=== PATIENT | male | born 1965 | race Caucasian/White ===

== ENCOUNTER → 2021-01-02 | Outpatient (CLI) | payer MEDICARE ==
[~2021-01-02] MED LIST: CIPRO500 MG PO; CYCLOBENZAPRINE10 MG PO; FLAGYL500 MG PO; NAPROSYN500 MG PO; NORCO 7.5-3251 EACH PO; ONDANSETRON ODT4 MG PO; PANTOPRAZOLE SO40 MG PO
== END ==
LOC: HEART 5 10:25
DX: I48.91 Unspecified atrial fibrillation (principal)

== ENCOUNTER → 2021-01-28 | Outpatient (CLI) | payer MEDICARE | LOC: HEART 5 07:40 | DX: I10 Essential (primary) hypertension (principal); I48.91 Unspecified atrial fibrillation; R07.89 Other chest pain | CPT/HCPCS: 78452; 93306; A9502 ==

== ENCOUNTER → 2021-03-07 | Outpatient (CLI) | payer MEDICARE ==
[~2021-03-07] MED LIST changes: +HYDROCHLOROTH12.5 MG PO; +LIPITOR40 MG PO; +METOPROLOL TART25 MG PO; +NORVASC5 MG PO; +ST. JOSEPH ASPI81 M1 PO; +ULTRAM50 MG PO
[2021-03-07 10:07] LABS: HEMOGLOBIN 15.8 gm/dl (14.0-17.5); RED BLOOD COUNT 4.92 M/UL (4.20-5.50); WHITE BLOOD COUNT 7.4 K/UL (4.5-11.0)
[2021-03-07 10:27] LABS: BUN/CREATININE RATIO 16 (0-10)
== END ==
LOC: CATH 08:49
PROVIDERS: Internal Medicine Cardiovascular Disease
DX: I25.118 Atherosclerotic heart disease of native coronary artery with other forms of angina pectoris (principal); I10 Essential (primary) hypertension; E78.5 Hyperlipidemia, unspecified; R94.39 Abnormal result of other cardiovascular function study; G43.709 Chronic migraine without aura, not intractable, without status migrainosus; G47.33 Obstructive sleep apnea (adult) (pediatric); R91.8 Other nonspecific abnormal finding of lung field; Z79.82 Long term (current) use of aspirin; I48.91 Unspecified atrial fibrillation; Z20.822 Contact with and (suspected) exposure to COVID-19
CPT/HCPCS: 36415; 80048; 85025; 85610; 93005; 99152; C1769; C1894; J1644; J2250; J3010; J7030; Q9967